=== PATIENT | male | born 1970 | race Hispanic/Latino ===

== ENCOUNTER 2019-10-01 05:05 | Emergency (ER) | payer BC ==
[2019-10-01] MEDS ORDERED: SODIUM CHLORIDE 0.9% 1000ML 1,000 ML IV ONE ×2 (05:22→07:32)
[2019-10-01] MEDS ORDERED: ONDANSETRON HCL 4 MG/2 ML VIAL ONE (05:22)
[2019-10-01] MEDS ORDERED: MORPHINE SULFATE 4 MG/1ML SYG ONE (05:30)
[2019-10-01] MEDS ORDERED: KETOROLAC TROMETHAMINE 15MG/ML ONE (06:02)
[2019-10-01] MEDS ORDERED: TAMSULOSIN HCL 0.4 MG CAP.ER.24H ONE (07:33)
== END 2019-10-01 08:30 | disposition home or self-care (01) ==
LOC: EDH 05:05
DX: N13.2 Hydronephrosis with renal and ureteral calculous obstruction (principal); I10 Essential (primary) hypertension
CPT/HCPCS: 36415; 74176; 80053; 81001; 83690; 85025; 96374; 96375; 99284; J1885; J2270; J2405; J7030 ×2